=== PATIENT | female | born 1950 | race Caucasian/White ===

== ENCOUNTER 2018-06-22 00:10 | Emergency (ER) | payer BC, OTHER ==
--- NOTE | 2018-06-22 00:21 | PDOC ---
History of Present Illness - General Chief Complaint: Injury Stated Complaint: LT LEG PAIN Time Seen by Provider: 06/22/18 00:15 - History of Present Illness Initial Comments: This 67-year-old woman with a history of HTN/DM/HLD/hypothyroidism presents with a history of injury to her left leg earlier this evening: As patient was returning from a trip to [place] this evening, while descending on an escalator in airport with her , 's luggage slipped out of his hand and fell onto posterior portion of the patient's left thigh. Patient fell forward onto her knees and her also fell forward, striking patient's thigh. There was no loss of consciousness/head injury/neck injury. Patient was able to stand and ambulate although she has pain in the posterior, proximal portion of her left thigh with weightbearing. Otherwise, she has no complaints. No history of previous injury in this leg. Past History - Past Medical History Allergies/Adverse Reactions: Allergies Allergy/AdvReac Type Severity Reaction Status Date / Time No Known Allergies Allergy Verified 09/20/12 23:22 Home Medications: Ambulatory Orders Atorvastatin Ca [Lipitor] 20 mg PO HS 09/20/12 Levothyroxine [Synthroid -] 137 mcg PO DAILY 01/30/14 metFORMIN HCL [Glucophage] 1,000 mg PO BID 03/20/14 Ibuprofen [Motrin -] 600 mg PO TID PRN #20 tablet 06/22/18 Ibuprofen [Motrin Ib] 600 mg PO ONCE 06/22/18 Losartan/Hydrochlorothiazide [Losartan-Hctz 100-12.5 mg Tab] 1 each PO DAILY Diabetes: Yes HTN: Yes Hypercholesterolemia: Yes Thyroid Disease: Yes - Immunization History Td Vaccination: Yes Immunization Up to Date: No - Suicide/Smoking/Psychosocial Hx Smoking Status: No Smoking History: Never smoked Number of Cigarettes Smoked Daily: 0 Review of Systems - Review of Systems Able to Perform ROS?: Yes Comments:: 12 point review of systems is negative except for what is noted in the history of present illness *Physical Exam - Physical Exam Comments: GENERAL: Adult female, alert and oriented 3, in mild distress secondary to left thigh pain HEAD: Normal with no signs of trauma. EYES: PERRLA, EOMI, sclera anicteric, conjunctiva clear. EXTREMITIES: Left lower extremity-mild edema, mild tenderness, no deformity/ ecchymosis of proximal, posterior left thigh No anterior hip tenderness; no limb shortening or rotation No knee/lower leg/ ankle or foot edema or tenderness. Pelvis nontender and remainder of extremity exam is normal NEUROLOGICAL: Cranial nerves II through XII grossly intact. Normal speech. No focal neurological deficits. Gait is normal except for slight favoring of left lower extremity MUSCULOSKELETAL: Back non-tender to palpation, no CVA tenderness SKIN: Warm, Dry, normal turgor, no rashes or lesions noted. Medical Decision Making - Medical Decision Making Left hip x-ray performed: No evidence of fracture or dislocation on preliminary interpretation by me. Clinical presentation at this time appears to be left posterior thigh contusion. Patient advised to rest and avoid strenuous activity involving lower extremities for the next few days. She should also ice the area for the next 48 hours. The patient works as a biological science aide and she should not work on Saturday, 06/23 and work documentation was provided for the patient. Angel wrap to the left thigh should be worn during the day for the next 5 days.. Motrin 600 mg up to 3 times a day, taken with food, prescription sent to her pharmacy. Patient has been treated by in the past and she should follow-up with him if she has persistent pain in the area of the contusion. *DC/Admit/Observation/Transfer Diagnosis at time of Disposition: Contusion of thigh, left Qualifiers: Encounter type: initial encounter Qualified Code(s): S70.12XA - Contusion of left thigh, initial encounter - Discharge Dispostion Disposition: HOME Condition at time of disposition: Stable - Prescriptions Prescriptions: Ibuprofen [Motrin -] 600 mg PO TID PRN #20 tablet PRN Reason: Pain - Referrals Referrals: Swapnil Forman MD [Primary Care Provider] - Jose Rocha MD [Staff Physician] - - Patient Instructions Printed Discharge Instructions: DI for Contusion Additional Instructions: ice/elevation of left thigh as much as possible for the next 2 days Angel wrap during day for the next 5 days no work on Saturday, 06/23 Motrin 600mg up to 3 X day as needed for pain; take with food followup with Dr Rocha if you have pain for more than 5 days return here if you have severe pain/swelling in leg - Post Discharge Activity Forms/Work/School Notes: Back to Work
[2018-06-22 00:22] VITALS: BP 130/94; PULSE 73; TEMP 97.8; BMI 30.9
== END 2018-06-22 01:24 | disposition home or self-care (01) ==
LOC: FER 00:10
DX: S70.12XA Contusion of left thigh, initial encounter (principal); W20.8XXA Other cause of strike by thrown, projected or falling object, initial encounter; Y93.89 Activity, other specified; Y92.520 Airport as the place of occurrence of the external cause; E11.9 Type 2 diabetes mellitus without complications; I10 Essential (primary) hypertension; E78.00 Pure hypercholesterolemia, unspecified
CPT/HCPCS: 73502-TC-LT-FY; 99281-25

== ENCOUNTER 2023-05-01 20:58 | Emergency (ER) | payer OTHER, BC ==
[2023-05-01 21:21] VITALS: BP 158/77; PULSE 65; RESP 17; TEMP 98; BMI 30.9
== END 2023-05-01 23:04 | disposition home or self-care (01) ==
LOC: FER 20:58
DX: R31.9 Hematuria, unspecified (principal); R10.9 Unspecified abdominal pain; N20.0 Calculus of kidney
CPT/HCPCS: 81003; 81015; 87086; 87186; 99283-25

== ENCOUNTER 2024-06-30 06:47 | Day surgery (SDC) | payer OTHER, BC ==
[2024-06-29 10:09] VITALS: BMI 33.3
[2024-06-30 10:45] VITALS: TEMP 98
[2024-06-30 11:24] VITALS: BP 156/74; PULSE 72; RESP 14
== END 2024-06-30 11:45 | disposition home or self-care (01) ==
LOC: JASU-ENDO 06:47
PROVIDERS: ATTEND Internal Medicine Gastroenterology
PROC: 0DBL8ZX Excision of Transverse Colon, Via Natural or Artificial Opening Endoscopic, Diagnostic (ICD-10-PCS; 2024-06-30)
PROC: 0DBN8ZX Excision of Sigmoid Colon, Via Natural or Artificial Opening Endoscopic, Diagnostic (ICD-10-PCS; 2024-06-30)
PROC: 0DBM8ZX Excision of Descending Colon, Via Natural or Artificial Opening Endoscopic, Diagnostic (ICD-10-PCS; 2024-06-30)
PROC: 0DBH8ZX Excision of Cecum, Via Natural or Artificial Opening Endoscopic, Diagnostic (ICD-10-PCS; 2024-06-30)
PROC: 0DB98ZX Excision of Duodenum, Via Natural or Artificial Opening Endoscopic, Diagnostic (ICD-10-PCS; 2024-06-30)
PROC: 0DB78ZX Excision of Stomach, Pylorus, Via Natural or Artificial Opening Endoscopic, Diagnostic (ICD-10-PCS; 2024-06-30)
PROC: 0DBJ8ZX Excision of Appendix, Via Natural or Artificial Opening Endoscopic, Diagnostic (ICD-10-PCS; principal; 2024-06-30 10:00)
DX: Z12.11 Encounter for screening for malignant neoplasm of colon (principal); K57.30 Diverticulosis of large intestine without perforation or abscess without bleeding; K63.5 Polyp of colon; K63.89 Other specified diseases of intestine; K29.50 Unspecified chronic gastritis without bleeding; K31.A0 Gastric intestinal metaplasia, unspecified; Z86.0100 Personal history of colon polyps, unspecified; Z80.0 Family history of malignant neoplasm of digestive organs; I10 Essential (primary) hypertension; E11.9 Type 2 diabetes mellitus without complications; Z79.84 Long term (current) use of oral hypoglycemic drugs
CPT/HCPCS: 82962; 88305-TC; 88342-TC